=== PATIENT | female | born 1960 | race African-American/Black ===

== ENCOUNTER 2016-07-26 07:40 | Inpatient (IN) | payer MEDICAID ==
[2016-07-26] VITALS (17 sets, daily range): BP systolic 104–130; BP diastolic 63–84
[~2016-07-26] VITALS: Ht 168.9 cm; Wt 108.9 kg
[~2016-07-26 07:40] MED LIST: BANOPHEN25 MG PO; BUPROPION XL150 MG ORAL; CELEXA20 MG ORAL; KLONOPIN0.5 MG ORAL; LORATADINE10 M2 PO; METOCLOPRA10 MG/10 M ORAL; TRAZODONE HCL150 MG ORAL; ceFAZolin 1gm in D5W 55ml IVP ONE
[2016-07-26] MEDS ORDERED: cefOXitin 2gm Inj ONE (10:42)
[2016-07-26] MEDS ORDERED: Propofol 10mg/ml 20ml IV ONE ×2 (10:42→11:30)
[2016-07-26] MEDS ORDERED: ProvayBlue 5mg/ml 10ml amp INJ ONE (10:46)
--- NOTE | 2016-07-26 10:48 | Pre-Procedure Note/Attestation ---
Pre-Procedure Note/Attestation Complete Prior to Procedure Planned Procedure: not applicable Procedure Narrative: cystocle repair rectocele repair vaginal sling cystoscopy Indications for Procedure Pre-Operative Diagnosis: vaginal prolapce Attestation I attest that I discussed the nature of the procedure; its benefits; risks and complications; and alternatives (and the risks and benefits of such alternatives ), prior to the procedure, with the patient (or the patient's legal financial service representative). I attest that, if there was a reasonable possibility of needing a blood transfusion, the patient (or the patient's legal financial service representative) was given the [facility] standardized written summary, pursuant to the [place] Blood Safety Act ([place] Health and Safety Code # 1645, as amended). I attest that I re-evaluated the patient just prior to the surgery and that there has been no change in the patient's H&P, except as documented below: Domo Sanchez MD Jul 26, 2016 10:48
--- NOTE | 2016-07-26 10:49 | Brief Operative Note ---
Immediate Post Operative Note Operative Note Pre-op Diagnosis: vaginal prolapce Procedure: cysto and rectocele reapir vaginal sling cystoscopy Post-op Diagnosis: same Surgeon: Kenton Sanchez Specimen: none Complications: none Condition: stable Estimated Blood Loss: minimal Implant(s) used?: No Domo Sanchez MD Jul 26, 2016 10:49
[2016-07-26] MEDS ORDERED: EPINEPHrine 1mg/1ml Amp ONE (10:50)
[2016-07-26] MEDS ORDERED: Surgicel 4in x 8in TOPIC ONE (10:50)
[2016-07-26] MEDS ORDERED: Bupivacaine 0.25% Inj 30ml INJ ONE (10:50)
[2016-07-26] MEDS ORDERED: Norco 5mg/325mg tab ORAL PRN (11:00)
[2016-07-26] MEDS ORDERED: Sterile Water Irrig 1000ml IRRIG ONE ×2 (11:30→11:40)
[2016-07-26] MEDS ORDERED: LR 1000ml ONE (11:30)
[2016-07-26] MEDS ORDERED: Glycopyrrolate 0.2mg/ml 1ml Vial ONE (11:30)
[2016-07-26] MEDS ORDERED: Ketorolac 30mg Inj ONE (11:30)
[2016-07-26] MEDS ORDERED: Neostigmine 1mg/ml 10ml Inj ONE (11:30)
[2016-07-26] MEDS ORDERED: fentaNYL 100 mcg/2 mL IV ONE (11:30)
[2016-07-26] MEDS ORDERED: Zemuron 50mg/5ml Inj IV ONE (11:30)
[2016-07-26] MEDS ORDERED: Midazolam 2mg/2ml Inj ONE (11:30)
[2016-07-26] MEDS ORDERED: NS Irrig 1000ml ONE (11:30)
[2016-07-26] MEDS ORDERED: Bacitracin 50000 Units Vial IRRIG ONE (11:45)
[2016-07-26] MEDS ORDERED: LR 1000ml 1,000 ML IVLG SCH (12:03)
--- NOTE | 2016-07-26 12:03 | Anethesia Preoperative Eval ---
Anesthesia Pre-op PMH/ROS General Date of Evaluation: Jul 26, 2016 Time of Evaluation: 11:01 Anesthesiologist: Oli ASA Score: ASA 3 Mallampati Score Class I : Soft palate, uvula, fauces, pillars visible Class II: Soft palate, uvula, fauces visible Class III: Soft palate, base of uvula visible Class IV: Only hard plate visible Mallampati Classification: Class III Surgeon: Daniel Diagnosis: Urinary incontinence Surgical Procedure: Vaginal sling placement, Cysto dottie and rectocele repair Anesthesia History: none Family History: no anesthesia problems Allergies: Coded Allergies: No Known Allergies (Unverified , 07/25/16) Past Medical History Cardiovascular: Denies: CAD, HTN, AK, arrhythmia, other, valve dz Pulmonary: Reports: KAYLEE, Denies: COPD, asthma, other Gastrointestinal/Genitourinary: Reports: GERD, Denies: CRI, ESRD, other Neurologic/Psychiatric: Denies: CVA, TIA, dementia, depression/anxiety, other Endocrine: Denies: DM, hypothyroidism, other, steroids HEENT: Denies: AKHIOK (L), AKHIOK (R), cataract (L), cataract (R), glaucoma, other Hematology/Immune: Denies: DVT, anemia, bleeding disorder, other Musculoskeletal/Integumentary: Reports: DJD, Denies: DDD, OA, RA, edema, other Other: obesity - morbid obesity PMH Narrative: as above PSxH Narrative: Hysterectomy Anesthesia Pre-op Phys. Exam Physician Exam Last Vital Signs Date Time Temp Pulse Resp B/P Pulse Ox O2 Delivery O2 Flow Rate FiO2 07/26/16 08:44 96.9 70 18 114/71 100 Room Air Constitutional: NAD Neurologic: CN 2-12 intact Cardiovascular: RRR, no M/R/G Respiratory: CTA Gastrointestinal: other - obesity Airway Exam Mallampati Score: Class III MO: limited Neck: short ROM: limited Teeth: missing Dentures: no lower, no upper Anesthesia Pre-op A/P Labs see chart Studies Pre-op Studies: EKG - NSR Risk Assessment & Plan Assessment: ASA 3 Plan: GA with ETT Status Change Before Surgery: No Pre-Antibiotics Drug: Cefoxitine 2gr. Given Within 1 Hr of Incision: Yes Time Given: 11:12 ERICKA CARDOZO M.D. Jul 26, 2016 12:03
[2016-07-26] MEDS ORDERED: Metoclopramide 10mg/2ml Inj IVP PRN (12:15)
[2016-07-26] MEDS ORDERED: Meperidine 25mg/ml Inj IV PRN (12:15)
[2016-07-26] MEDS ORDERED: Ketorolac 30mg Inj IV PRN (12:15)
[2016-07-26] MEDS ORDERED: DiphenhydrAMINE 50mg/ml Inj IVP PRN (12:15)
--- NOTE | 2016-07-26 12:53 | Immediate Post-Op Evaluation ---
Immediate Post-Op Evalulation Immediate Post-Op Evalulation Procedure: Cyston and rectocele repair vaginal sling placement Date of Evaluation: Jul 26, 2016 Time of Evaluation: 12:52 IV Fluids: 1100 Blood Products: none Estimated Blood Loss: 150 Urinary Output: 500 Blood Pressure Systolic: 120 Blood Pressure Diastolic: 84 Pulse Rate: 96 Respiratory Rate: 22 O2 Sat by Pulse Oximetry: 99 Temperature (Fahrenheit): 97.2 Pain Score (1-10): 2 Nausea: No Vomiting: No Complications none Patient Status: reacts, patent, none Hydration Status: adequate ERICKA CARDOZO M.D. Jul 26, 2016 12:53
[2016-07-26] MEDS: Hydromorphone 0.5mg/0.5ml inj IVP PRN ×2 (13:03→13:39)
[2016-07-26] MEDS ORDERED: BuPROPion XL 150mg tab ORAL SCH (16:00)
[2016-07-26] MEDS: Citalopram 20mg Tab ORAL SCH (16:37)
[2016-07-26] MEDS: D5 1/2NS w/KCl 20mEq 1,000 ML IV SCH (16:37)
[2016-07-26] MEDS: Metoclopramide 10mg/10ml Liq ORAL SCH (19:04)
[2016-07-26] MEDS: clonazePAM 0.5mg tab ORAL SCH (19:04)
[2016-07-26] MEDS: Docusate 100mg cap ORAL SCH (19:05)
[2016-07-26] MEDS: ceFAZolin sod 2 GM in D5W 110 ML IV SCH (19:05)
[2016-07-26] MEDS ORDERED: TraZODone 50mg tab ORAL SCH (21:00)
[2016-07-27] VITALS: BP 125/82
[2016-07-27] MEDS: Metoclopramide 10mg/10ml Liq ORAL SCH ×3 (00:10→12:00)
[2016-07-27] MEDS: clonazePAM 0.5mg tab ORAL SCH ×3 (00:10→12:00)
[2016-07-27] MEDS: Ketorolac 30mg Inj IM PRN ×3 (00:17→12:47)
[2016-07-27] MEDS: D5 1/2NS w/KCl 20mEq 1,000 ML IV SCH (02:08)
[2016-07-27] MEDS: ceFAZolin sod 2 GM in D5W 110 ML IV SCH (03:00)
[2016-07-27 04:00] VITALS: BP_SYST 104; BP_SYST 123; BP_DIAS 60; BP_DIAS 66
[2016-07-27 08:00] VITALS: BP 113/67
[2016-07-27] MEDS: Citalopram 20mg Tab ORAL SCH (08:44)
[2016-07-27] MEDS: Docusate 100mg cap ORAL SCH (08:44)
[2016-07-27] MEDS ORDERED: Influenza Virus Vaccine 0.5ml IM ONE (11:00)
--- NOTE | 2016-07-27 11:01 | 48 Hour Post Anesthesia Eval ---
Post Anesthesia Evaluation Procedure: Cyston and rectocele repair vaginal sling placement Date of Evaluation: Jul 27, 2016 Time of Evaluation: 07:00 Blood Pressure Systolic: 104 0: 66 Pulse Rate: 88 Respiratory Rate: 18 Temperature (Fahrenheit): 98.1 O2 Sat by Pulse Oximetry: 97 Airway: patent Nausea: No Vomiting: No Pain Intensity: 1 Hydration Status: adequate Cardiopulmonary Status: at baseline Mental Status/LOC: patient returned to baseline Post-Anesthesia Complications: 0 Follow-up care needed: N/A - further care as per primary team ALYSSA WLISON M.D. Jul 27, 2016 11:01
[2016-07-27 12:00] VITALS: BP 104/68
--- NOTE | 2016-07-27 16:38 | Operative Note - Dictated ---
DATE OF OPERATION: 07/26/2016 PREOPERATIVE DIAGNOSES: Vaginal prolapse and incontinence POSTOPERATIVE DIAGNOSES: Vaginal prolapse and incontinence OPERATION: Transvaginal cystocele repair, rectocele repair, vaginal wall sling, colposuspension, and cystoscopy. SURGEON: Domo Sanchez M.D. ANESTHESIA: General. FINDINGS: Prolapsed vagina with anterior and posterior vaginal prolapse. INDICATIONS FOR SURGERY: The patient had pronounced cystocele and rectocele and stress incontinence. Treatment options were explained to him in great length including all potential complications. She understands the placement of the mesh to support her bladder and understands all potential complications of surgery. She signed the consent, brought to the operating room, placed in lithotomy position, prepped and draped in standard fashion. Under general anesthesia, a central incision was made and bladder was from the vagina. Retropubic space was entered and using Prism [employer] device, a sacrospinal mesh was placed supporting the bladder. Mesh was secured to the cervix, and the bladder was lifted well with sacrospinal suspension. After that mid urethral sling was placed, the wound was copiously irrigated. Rectocele repair was done using approximation of perirectal fascia with interrupted 2-0 Vicryl sutures. Vagina was trimmed and closed. Cystoscopy was normal with ejection of indigo carmine from both ureteral orifices. Vagina was packed. [place] catheter was placed. Sponge count and instrument count was correct. Domo Sanchez M.D. DR: NORBERTO JOB#: [id number] CC:
--- NOTE | 2016-07-28 13:15 | Discharge Summary ---
Discharge Summary Hospital Course Date of Admission Jul 26, 2016 at 08:01 Date of Discharge Jul 27, 2016 at 15:44 Admitting Diagnosis SERGIO Godfrey is a 56 year old female who was admitted on Jul 26, 2016 at 08:01 for Cystocele,Rectacele,Incontinent Hospital Course [id number] Discharge Discharge Disposition Patient was discharged to Home (01) Discharge Diagnoses: Daylin Mccloud NP Jul 28, 2016 13:15
--- NOTE | 2016-07-29 02:37 | Discharge Summary 2 SIG ---
DATE OF ADMISSION: 07/26/2016 DATE OF DISCHARGE: 07/27/2016 BRIEF HOSPITAL COURSE: The patient is a 56-year-old female, who has pronounced cystocele and rectocele with stress incontinence. She was admitted on 07/26/2016 and underwent transvaginal cystocele repair, rectocele repair, vaginal wall sling, colposuspension, and cystoscopy. Postoperatively, she was given IV hydration and pain management. Following day, the vaginal packing was removed and the patient was discharged home. She was given a flu vaccine upon discharge. FINAL DIAGNOSIS: Vaginal prolapse and incontinence, status post transvaginal cystocele repair, rectocele repair, vaginal wall sling, colposuspension, and cystoscopy. Domo Sanchez M.D. I have been assigned to dictate discharge summary on this account and I was not involved in the patient's management. Daylin Mccloud N.P. DR: MARY JOB#: [id number] CC: KATY
== END 2016-07-27 15:44 | disposition home or self-care (01) | DRG 514 ==
LOC: SDSOVERFLO 08:01 → 3E 14:31
PROC: 0USG4ZZ Reposition Vagina, Percutaneous Endoscopic Approach (ICD-10-PCS; 2016-07-26)
PROC: 0JUC0KZ Supplement of Pelvic Region Subcutaneous Tissue and Fascia with Nonautologous Tissue Substitute, Open Approach (ICD-10-PCS; 2016-07-26)
PROC: 0TJB8ZZ Inspection of Bladder, Via Natural or Artificial Opening Endoscopic (ICD-10-PCS; 2016-07-26)
PROC: 0JQC3ZZ Repair Pelvic Region Subcutaneous Tissue and Fascia, Percutaneous Approach (ICD-10-PCS; principal; 2016-07-26 11:00)
DX: N81.10 Cystocele, unspecified (principal); Z68.41 Body mass index [BMI] 40.0-44.9, adult; I10 Essential (primary) hypertension; G47.33 Obstructive sleep apnea (adult) (pediatric); K21.9 Gastro-esophageal reflux disease without esophagitis; R32 Unspecified urinary incontinence; E66.01 Morbid (severe) obesity due to excess calories; Z90.710 Acquired absence of both cervix and uterus
CPT/HCPCS: 36415; 86850; 86900; 86901; 87081; 94003; 94150; J2180; J2250; J2405; J2710; Q2036